=== PATIENT | male | born 1995 | race African-American/Black ===

== ENCOUNTER 2025-01-28 15:32 | Emergency (ER) | payer MEDICAID ==
[~2025-01-28] VITALS: Ht 170.2 cm; Wt 86.0 kg
[2025-01-28 15:39] VITALS: BP 142/79; TEMP 36.6
[2025-01-28 15:50] VITALS: PULSE 124; RESP 24; O2SAT 94
[2025-01-28] MEDS: IPRATROPIUM BROMIDE (0.02%) 0.5MG/2.5ML NEB HHN STA (15:50)
[2025-01-28] MEDS: ALBUTEROL (0.083%) 2.5MG/3ML NEB HHN STA (15:50)
[2025-01-28] MEDS: PREDNISONE 20MG TABLET PO STA (15:53)
[2025-01-28] MEDS ORDERED: ALBU90AE INH (16:40)
[2025-01-28] MEDS ORDERED: P20 MT (16:40)
== END 2025-01-28 16:57 | disposition home or self-care (01) ==
LOC: ER 15:32
DX: J45.901 Unspecified asthma with (acute) exacerbation (principal); Z87.891 Personal history of nicotine dependence; Z98.890 Other specified postprocedural states; Z79.899 Other long term (current) drug therapy
CPT/HCPCS: 71045; 94644; 99285; J7512; Z7610 ×3; 94070; 94640

== ENCOUNTER 2025-08-05 10:41 | Emergency (ER) | payer MEDICAID ==
[~2025-08-05] VITALS: Ht 172.7 cm; Wt 91.0 kg
[~2025-08-05 10:41] MED LIST: ALBU90AE INH; P20 MT
[2025-08-05 10:44] VITALS: TEMP 36.9; O2SAT 100
[2025-08-05] MEDS: BACITRACIN ZINC OINT UDPKT TOP ONE (11:45)
[2025-08-05] MEDS: TETANUS, DIPHTHERIA, PERTUSSIS VAC/PF 0.5ML (>10YR OLD) IM ONE (11:45)
[2025-08-05] MEDS: LIDOCAINE HCL 1% 20ML VIAL INFIL ONE (11:45)
[2025-08-05] MEDS ORDERED: IBUP-1455 MT (13:29)
[2025-08-05] MEDS ORDERED: BO1 TP (13:29)
[2025-08-05 13:39] VITALS: BP 160/99; PULSE 84; RESP 18; O2SAT 100
== END 2025-08-05 13:45 | disposition home or self-care (01) ==
LOC: ER 10:41
DX: S51.012A Laceration without foreign body of left elbow, initial encounter (principal); J45.909 Unspecified asthma, uncomplicated; Z98.890 Other specified postprocedural states; Z79.899 Other long term (current) drug therapy; X58.XXXA Exposure to other specified factors, initial encounter; Y93.89 Activity, other specified; Y92.89 Other specified places as the place of occurrence of the external cause; Y99.8 Other external cause status
CPT/HCPCS: 90715; 12001; 90471; 99283; J2003; Z7610 ×3; A6449

== ENCOUNTER 2025-08-15 09:28 | Emergency (ER) | payer MEDICAID ==
[~2025-08-15] VITALS: Ht 170.2 cm; Wt 90.0 kg
[~2025-08-15 09:28] MED LIST changes: +BO1 TP; +IBUP-1455 MT
[2025-08-15 09:31] VITALS: O2SAT 100
[2025-08-15 09:34] VITALS: BP 132/74; PULSE 84; RESP 16; TEMP 37.1; O2SAT 98
== END 2025-08-15 09:42 | disposition home or self-care (01) ==
LOC: ER 09:35
DX: S51.012D Laceration without foreign body of left elbow, subsequent encounter (principal); X58.XXXD Exposure to other specified factors, subsequent encounter
CPT/HCPCS: 99282